=== PATIENT | female | born 1965 | race Caucasian/White ===

== ENCOUNTER → 2018-06-26 | Outpatient (CLI) | payer BC ==
--- NOTE | 2018-06-26 16:15 | RAD ---
PA and lateral chest x-ray compared to similar study dated January 26, 2016 for shortness of air. FINDINGS: Lungs are hyperinflated. No pneumothorax, pleural effusion, congestive heart failure, or focal infiltrate is seen. Heart size within normal limits. Atherosclerosis is seen. No significant osseous anomalies. IMPRESSION: 1. Hyperinflation consistent with COPD. No acute cardiopulmonary abnormality. Electronically signed by: Jose J Quigley MD (06/26/2018 4:12 PM) [id number]
== END | disposition home or self-care (01) ==
LOC: RAD 11:59
PROVIDERS: ATTEND Internal Medicine Critical Care Medicine
DX: R06.02 Shortness of breath (principal); I70.90 Unspecified atherosclerosis
CPT/HCPCS: 71046

== ENCOUNTER → 2019-09-23 | Outpatient (CLI) | payer BC, OTHER | END | disposition home or self-care (01) | LOC: LAB 13:29 | PROVIDERS: ATTEND Orthopaedic Surgery | DX: Z01.818 Encounter for other preprocedural examination (principal); Z11.59 Encounter for screening for other viral diseases; M65.311 Trigger thumb, right thumb; M65.312 Trigger thumb, left thumb; R00.2 Palpitations; Z88.1 Allergy status to other antibiotic agents; Z88.8 Allergy status to other drugs, medicaments and biological substances; Z88.5 Allergy status to narcotic agent; R06.02 Shortness of breath | CPT/HCPCS: U0003-CS ==

== ENCOUNTER 2019-09-27 06:05 | Day surgery (SDC) | payer OTHER ==
[~2019-09-27] VITALS: Ht 162.6 cm; Wt 51.7 kg
[~2019-09-27 06:05] MED LIST: ceFAZolin SODIUM IV Push 1 GM VIAL. IVP PRN
[2019-09-27] MEDS ORDERED: LIDOCAINE 1% PF 2 ML VIAL. ID PRN (07:00)
[2019-09-27] MEDS ORDERED: PROCHLORPERAZINE 10 MG/2 ML VIAL. IV PRN (07:00)
[2019-09-27] MEDS ORDERED: IV RINGERS,LACTATED 1000ML 1,000 ML IV SCH (07:00)
[2019-09-27] MEDS ORDERED: fentaNYL PF VIAL 100 MCG/2 ML VIAL IV PRN ×2 (07:00)
[2019-09-27] MEDS ORDERED: ONDANSETRON PF 4 MG/2 ML VIAL. IV PRN (07:00)
[2019-09-27] MEDS ORDERED: MORPHINE SULFATE 2 MG/ML VIAL. IV PRN (07:00)
[2019-09-27] MEDS ORDERED: HYDROmorphone 2 MG/ML VIAL IV PRN (07:00)
[2019-09-27] MEDS ORDERED: ceFAZolin SODIUM IV Push 1 GM VIAL. IVP ONE (07:00)
[2019-09-27] MEDS ORDERED: LIDOCAINE 1% Multi-Dose 20 ML VIAL. ONE (07:01)
[2019-09-27 07:03] LABS: BASO # 0.1 x10^3/uL (0.0-0.2); BASO % 1 % (0-3); EOS # 0.4 x10^3/uL (0.0-0.7); EOS % 4 % (0-3); HEMATOCRIT 42.7 % (36.0-47.0); HEMOGLOBIN 14.7 g/dL (12.0-15.5); LYMPH # 3.6 x10^3/uL (1.0-4.8); LYMPH % 39 % (24-48); MEAN CORPUSCULAR HEMOGLOBIN 32 pg (25-35); MEAN CORPUSCULAR HGB CONC 34 g/dL (31-37); MEAN CORPUSCULAR VOLUME 92 fL (79-100); MONO # 0.8 x10^3/uL (0.0-1.1); MONO % 8 % (0-9); NEUT # 4.4 x10^3/uL (1.8-7.7); NEUT % 47 % (31-73); PLATELET COUNT 291 x10^3/uL (140-400); RED BLOOD COUNT 4.66 x10^6/uL (3.50-5.40); RED CELL DISTRIBUTION WIDTH 12.9 % (11.5-14.5); WHITE BLOOD COUNT 9.2 x10^3/uL (4.0-11.0)
--- NOTE | 2019-09-27 07:04 | EKG ---
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
[2019-09-27 07:05] LABS: CALCIUM 8.5 mg/dL (8.5-10.1); CREATININE 1.1 mg/dL (0.6-1.0); GFR 51.6; POTASSIUM 3.2 mmol/L (3.5-5.1)
[2019-09-27] MEDS ORDERED: OXYC1TAB15 PO (07:24)
--- NOTE | 2019-09-27 07:27 | DISCH ---
DISCHARGE INSTRUCTIONS Condition on Discharge Condition on Discharge: Stable Activity After Discharge Activity Instructions for Disc: Other, see below (Avoid hard grasp at base of thumbs, may do fine motor use without restriction) Bathing Instructions: Shower-keep dressing dry Diet after Discharge Diet after Discharge: Regular Wound Incision Care Wound/Incision Care: Change dressing (May remove dressing in [address] a Band-Aid) Contacting the after DC Call your doctor for: Concerns you may have Follow-Up Follow up with: Dr. More 10 days ALLISON MORE MD Sep 27, 2019 07:27
[2019-09-27] MEDS ORDERED: fentaNYL PF VIAL 100 MCG/2 ML VIAL ONE ×2 (07:51→08:42)
[2019-09-27] MEDS ORDERED: MIDAZOLAM HCL/PF 2 MG/2 ML VIAL. ONE (07:52)
[2019-09-27] MEDS ORDERED: DEXAMETHASONE SOD PHOS 4 MG/ML VIAL ONE (07:52)
[2019-09-27] MEDS ORDERED: LIDOCAINE 2% PF 5 ML VIAL. ONE (07:52)
[2019-09-27] MEDS ORDERED: ONDANSETRON PF 4 MG/2 ML VIAL. ONE (07:52)
[2019-09-27] MEDS ORDERED: PROPOFOL 10 MG/ML (20ML) VIAL. IV ONE (07:52)
[2019-09-27] MEDS ORDERED: ePHEDrine PF IN SALINE 50 MG/10 ML SYRINGE. IV ONE (08:18)
[2019-09-27] MEDS ORDERED: GLYCOPYRROLATE 1 MG/5 ML VIAL. ONE (08:24)
[2019-09-27] MEDS ORDERED: PHENYLEPHRINE in 0.9% NACL PF 1 MG/10 ML SYRINGE. IV ONE (08:33)
[2019-09-27] MEDS ORDERED: oxyCODONE/APAP 5/325 1 TAB TABLET PO PRN (09:30)
[2019-09-27 09:50] VITALS: BP 129/84
--- NOTE | 2019-09-27 20:39 | PDOC4 ---
Operative Note Operative Note Date of surgery: 09/27/2019 Preoperative diagnosis: Bilateral trigger thumbs Postoperative diagnosis: Same Operative procedure: Bilateral trigger thumb release Surgeon: Argenis Anesthesia: General Estimated blood loss: 5 cc Complications: None Operative indications: Please see my orthopedic clinic consultation for detailed operative indications Operative text: Patient was identified procedure verified patient placed in the supine position on the operating table. After adequate amounts of general anesthesia were administered bilateral upper extremities were prepped and draped in standard sterile fashion with an upper arm tourniquet. After timeout was performed patient procedure identified and verified, attention was first turned to the left upper extremity where the arm was exsanguinated by Esmarch bandage tourniquet inflated to 250 mmHg a transverse incision was made at the base of the thumb dissection was carried out to the flexor tendon sheath which was divided entirely at the A1 mayda protecting the neurovascular bundles and the thumb was taken through full range of motion to verify correction of triggering. Thorough irrigation carried out normal saline solution and closure accomplished with 3-0 nylon in a simple fashion. Xeroform gauze and sterile soft dressings were applied. Fingers were noted to be warm and pink following deflation of the tourniquet. Attention was then turned to the right upper extremity where the arm was exsanguinated by Esmarch bandage tourniquet inflated to 250 mmHg a transverse incision was made at the base of the thumb dissection was carried out to the flexor tendon sheath which was divided entirely at the A1 mayda protecting the neurovascular bundles and the thumb was taken through full range of motion to verify correction of triggering. Thorough irrigation carried out normal saline solution and closure accomplished with 3-0 nylon in a simple fashion. Xeroform gauze and sterile soft dressings were applied. Fingers were noted to be warm and pink following deflation of the tourniquet. Patient was returned to recovery room in stable condition having tolerated procedure well ALLISON HERNANDEZ MD Sep 27, 2019 20:39
== END 2019-09-27 10:20 | disposition home or self-care (01) ==
LOC: SURG 06:05
PROVIDERS: ATTEND Orthopaedic Surgery
DX: M65.312 Trigger thumb, left thumb (principal); M65.311 Trigger thumb, right thumb; J44.9 Chronic obstructive pulmonary disease, unspecified; Z88.5 Allergy status to narcotic agent; Z79.899 Other long term (current) drug therapy; Z88.8 Allergy status to other drugs, medicaments and biological substances; Z98.890 Other specified postprocedural states
CPT/HCPCS: 26055; 36415; 80048; 85025; 93005; A7015; J0690; J1100; J2250; J2370; J2405; J2704; J3010; J3490; J7120